=== PATIENT | female | born 1960 | race Caucasian/White ===

== ENCOUNTER 2020-02-26 03:21 | Inpatient (IN) ==
[2020-02-26] MEDS ORDERED: Ondansetron 4 MG/2 ML VIAL IVP PRN ×2 (04:43→10:16)
[2020-02-26] MEDS ORDERED: Naloxone 0.4 MG/ML INJ IVP PRN ×2 (04:43→10:16)
[2020-02-26] MEDS ORDERED: D5% in Water 1,000 ML IVC PRN ×2 (04:44→10:16)
[2020-02-26] MEDS ORDERED: Dextrose Gel 15 GM/37.5 ML TUBE PO PRN ×4 (04:44→10:16)
[2020-02-26] MEDS ORDERED: *HR* Dextrose 50 % in Water (Syg) 50 ML SYRINGE IVP PRN ×2 (04:44→10:16)
[2020-02-26] MEDS ORDERED: Heparin 25,000 UNIT/250 ML D5W 25,000 UNIT/250 ML IV.SOLN IVC SCH ×2 (04:45→05:15)
[2020-02-26] MEDS ORDERED: Aspirin 325 MG TABLET PO ONE (04:48)
[2020-02-26] MEDS ORDERED: *HR* Heparin 5,000 UNIT/ML VIAL IVP PRN ×4 (05:13→10:16)
[2020-02-26] MEDS ORDERED: Acetaminophen 325 MG TABLET PO PRN (05:30)
[2020-02-26] MEDS ORDERED: Insulin LISPRO 300 UNITS/3 ML VIAL SQ SCH (06:00)
[2020-02-26 06:12] LABS: Basophils % 0.3 %; Eosinophils % 0.1 %; Hematocrit 36.7 % (35.3-44.9); Hemoglobin 11.6 g/dL (11.5-15.4); Immature Granulocytes % 0.4 % (0-4); Lymphocytes # 1.8 K/mcL (0.6-4.6); Lymphocytes % 13.1 %; Mean Corpuscular HGB Conc 31.6 g/dL (31.6-35.5); Mean Corpuscular Hemoglobin 29.4 pg (28.0-33.3); Mean Corpuscular Volume 93.1 fL (83.0-100.0); Monocytes # 0.9 K/mcL (0.0-1.3); Monocytes % 6.3 %; Neutrophils # 10.8 K/mcL (1.6-8.9); Platelet Count 373 K/mcL (140-400); Red Blood Count 3.94 M/mcL (3.82-4.97); Segmented Neutrophils % 79.8 %; White Blood Count 13.6 K/mcL (4.3-11.1)
[2020-02-26 06:18] LABS: Heparin anti-factor XA UFH 0.85 IU/mL (0.30-0.70)
[2020-02-26 06:19] LABS: Prothrombin Time 11.6 Seconds (9.4-12.1)
[2020-02-26 06:45] LABS: Albumin 4.4 g/dL (3.5-5.7); Albumin/Globulin Ratio 1.4 (1.1-2.2); Bilirubin,Total 0.7 mg/dL (0.3-1.0); Calcium 10.9 mg/dL (8.6-10.3); Chol/HDL Ratio 6.8 (0-4.9); Globulin 3.2 g/dL (2.4-3.5); Magnesium 1.6 mg/dL (1.6-2.6); Phosphorous 5.2 mg/dL (2.7-4.5); Potassium 5.1 mEq/L (3.5-5.1); Total Protein 7.6 g/dL (6.4-8.9); Troponin I 0.89 ng/mL (< 0.04)
[2020-02-26 07:02] LABS: Bilirubin,Urine Negative (Negative); Blood,Urine Negative (Negative); Clarity,Urine Cloudy (Clear); Color,Urine Yellow (Yellow); Glucose,Urine (UA) 500 mg/dL (Normal); Ketones,Urine Negative (Negative); Leukocyte Esterase,Urine Large (Negative); Nitrite,Urine Negative (Negative); Protein,Urine Negative (Neg-Trace); Specific Gravity,Urine 1.014 (1.010-1.025); Urobilinogen,Urine Normal (Normal)
[2020-02-26] MEDS: Furosemide 40 MG/4 ML VIAL IVP ONE (07:03)
[2020-02-26 07:05] LABS: Bacteria,Urine Few per hpf (None-Few); Hyaline Casts,Urine None Seen per lpf (None-Few); RBC,Urine 0-3 per hpf (0-3); Squamous Epithelial Cell,Urine Many per lpf (None-Few); WBC,Urine 15-30 per hpf (0-3)
[2020-02-26] MEDS ORDERED: carvediloL 6.25 MG TABLET PO SCH (08:00)
[2020-02-26] MEDS ORDERED: Furosemide 40 MG/4 ML VIAL IVP ONE ×2 (09:00→19:30)
[2020-02-26] MEDS ORDERED: Vancomycin 1,250 MG/262.5 ML IV.SOLN IVPB SCH (10:00)
[2020-02-26] MEDS ORDERED: Piperacillin/Tazobactam 3.375 GM in 0.9 % Sodium Chloride Mini Bag 100 ML IVPB SCH (10:00)
[2020-02-26] MEDS: Insulin LISPRO 300 UNITS/3 ML VIAL SQ SCH ×2 (11:59→17:11)
[2020-02-26] MEDS: Heparin 25,000 UNIT/250 ML D5W 25,000 UNIT/250 ML IV.SOLN IVC SCH (12:20)
[2020-02-26 12:22] LABS: Calcium 10.3 mg/dL (8.6-10.3); Potassium 4.6 mEq/L (3.5-5.1)
[2020-02-26] MEDS: levoFLOXacin 750 MG/150 ML 750 MG/150 ML BAG IVPB SCH (14:40)
[2020-02-26] MEDS: Acetaminophen 325 MG TABLET PO PRN (18:40)
[2020-02-26] MEDS ORDERED: Perflutren Lipid Microsphere 1.3 ML in 0.9 % Sodium Chloride 8.7 ML IVP ONE (18:41)
[2020-02-26 19:10] LABS: Potassium,Urine 45.1 mEq/L; Sodium, Urine 93.4 mEq/L
[2020-02-27 01:48] LABS: Basophils % 0.3 %; Eosinophils # 0.1 K/mcL (0.0-0.6); Eosinophils % 0.5 %; Hematocrit 32.4 % (35.3-44.9); Hemoglobin 10.6 g/dL (11.5-15.4); Immature Granulocytes % 0.3 % (0-4); Lymphocytes # 3.8 K/mcL (0.6-4.6); Lymphocytes % 30.5 %; Mean Corpuscular HGB Conc 32.7 g/dL (31.6-35.5); Mean Corpuscular Hemoglobin 29.7 pg (28.0-33.3); Mean Corpuscular Volume 90.8 fL (83.0-100.0); Mean Platelet Volume 10.8 fL (9.4-12.4); Monocytes # 0.9 K/mcL (0.0-1.3); Monocytes % 7.6 %; Neutrophils # 7.5 K/mcL (1.6-8.9); Platelet Count 313 K/mcL (140-400); Red Blood Count 3.57 M/mcL (3.82-4.97); Segmented Neutrophils % 60.8 %; White Blood Count 12.3 K/mcL (4.3-11.1)
[2020-02-27 02:03] LABS: Calcium 9.2 mg/dL (8.6-10.3); Magnesium 1.1 mg/dL (1.6-2.6); Potassium 3.9 mEq/L (3.5-5.1)
[2020-02-27] MEDS: Insulin LISPRO 300 UNITS/3 ML VIAL SQ SCH ×5 (06:33→20:32)
[2020-02-27 10:11] LABS: Estimated Average Glucose 151 mg/dl
[2020-02-27] MEDS: Heparin 25,000 UNIT/250 ML D5W 25,000 UNIT/250 ML IV.SOLN IVC SCH (11:37)
[2020-02-27] MEDS: Aspirin 81 MG TAB.CHEW PO SCH (11:41)
[2020-02-27] MEDS: carvediloL 6.25 MG TABLET PO SCH ×2 (11:49→16:42)
[2020-02-27] MEDS ORDERED: Furosemide 40 MG/4 ML VIAL IVP ONE (13:10)
[2020-02-27] MEDS ORDERED: Aminoglycoside Consult 1 EACH MC ONE (15:34)
[2020-02-27] MEDS: Furosemide 40 MG/4 ML VIAL IVP ONE (16:41)
[2020-02-27] MEDS: Acetaminophen 325 MG TABLET PO PRN ×2 (16:51→22:40)
[2020-02-27] MEDS: Insulin DETEMIR 100 UNIT/ML X5UNITS SQ SCH (20:32)
[2020-02-28 02:41] LABS: Basophils % 0.3 %; Eosinophils # 0.1 K/mcL (0.0-0.6); Eosinophils % 1.2 %; Hematocrit 30.3 % (35.3-44.9); Hemoglobin 9.9 g/dL (11.5-15.4); Immature Granulocytes % 0.3 % (0-4); Lymphocytes # 4.6 K/mcL (0.6-4.6); Lymphocytes % 38.5 %; Mean Corpuscular HGB Conc 32.7 g/dL (31.6-35.5); Mean Corpuscular Hemoglobin 29.7 pg (28.0-33.3); Mean Platelet Volume 10.9 fL (9.4-12.4); Monocytes # 1.2 K/mcL (0.0-1.3); Monocytes % 9.9 %; Platelet Count 299 K/mcL (140-400); Red Blood Count 3.33 M/mcL (3.82-4.97); Red Cell Distribution Width 14.1 % (11.5-14.5); Segmented Neutrophils % 49.8 %
[2020-02-28 03:01] LABS: Calcium 8.8 mg/dL (8.6-10.3); Magnesium 2.6 mg/dL (1.6-2.6); Potassium 3.5 mEq/L (3.5-5.1)
[2020-02-28] MEDS: Aspirin 81 MG TAB.CHEW PO SCH (07:13)
[2020-02-28] MEDS: Acetaminophen 325 MG TABLET PO PRN ×3 (07:15→21:02)
[2020-02-28] MEDS: Insulin LISPRO 300 UNITS/3 ML VIAL SQ SCH ×4 (07:54→20:53)
[2020-02-28] MEDS ORDERED: carvediloL 6.25 MG TABLET PO SCH (08:00)
[2020-02-28] MEDS: levoFLOXacin 750 MG/150 ML 750 MG/150 ML BAG IVPB SCH (13:10)
[2020-02-28] MEDS: Heparin 25,000 UNIT/250 ML D5W 25,000 UNIT/250 ML IV.SOLN IVC SCH (14:05)
[2020-02-28] MEDS: carvediloL 6.25 MG TABLET PO SCH (16:58)
[2020-02-28] MEDS: Insulin DETEMIR 100 UNIT/ML X5UNITS SQ SCH (20:54)
[2020-02-29] MEDS: Acetaminophen 325 MG TABLET PO PRN ×2 (05:03→21:02)
[2020-02-29 07:24] LABS: Potassium 3.5 mEq/L (3.5-5.1)
[2020-02-29 07:25] LABS: Magnesium 2.3 mg/dL (1.6-2.6)
[2020-02-29] MEDS: Aspirin 81 MG TAB.CHEW PO SCH (07:53)
[2020-02-29] MEDS: carvediloL 6.25 MG TABLET PO SCH ×2 (07:53→16:37)
[2020-02-29] MEDS: Insulin LISPRO 300 UNITS/3 ML VIAL SQ SCH ×3 (08:10→16:37)
[2020-02-29] MEDS ORDERED: Insulin LISPRO 300 UNITS/3 ML VIAL SQ SCH (10:07)
[2020-02-29] MEDS ORDERED: Methyl Salicylate/Menthol 57 APPL/57 GM TUBE TP PRN (15:19)
[2020-02-29] MEDS: Heparin 25,000 UNIT/250 ML D5W 25,000 UNIT/250 ML IV.SOLN IVC SCH (17:57)
[2020-02-29] MEDS: Insulin DETEMIR 100 UNIT/ML X5UNITS SQ SCH (20:31)
[2020-02-29] MEDS: *HR* Acetylcysteine 20% 600 MG/3 ML ORAL SYRINGE PO SCH (20:55)
[2020-03-01 02:48] LABS: INR 1.1; Prothrombin Time 12.3 Seconds (9.4-12.1)
[2020-03-01 03:01] LABS: Albumin 3.9 g/dL (3.5-5.7); Albumin/Globulin Ratio 1.3 (1.1-2.2); Bilirubin,Total 0.4 mg/dL (0.3-1.0); Calcium 9.2 mg/dL (8.6-10.3); Globulin 2.9 g/dL (2.4-3.5); Potassium 3.5 mEq/L (3.5-5.1); Total Protein 6.8 g/dL (6.4-8.9)
[2020-03-01 07:47] VITALS: BP 124/68
[2020-03-01] MEDS: Insulin LISPRO 300 UNITS/3 ML VIAL SQ SCH (08:00)
[2020-03-01] MEDS: carvediloL 6.25 MG TABLET PO SCH (09:14)
[2020-03-01] MEDS: Aspirin 81 MG TAB.CHEW PO SCH (09:14)
[2020-03-01] MEDS: Acetaminophen 325 MG TABLET PO PRN (09:23)
[2020-03-01] MEDS: *HR* Acetylcysteine 20% 600 MG/3 ML ORAL SYRINGE PO SCH (11:15)
[2020-03-01] MEDS ORDERED: 0.9 % Sodium Chloride 2,000 ML ONE (11:41)
[2020-03-01] MEDS ORDERED: Heparin 1,000 UNITS/500 mL 500 ML ONE (11:41)
[2020-03-01] MEDS ORDERED: *HR* Heparin 10,000 UNIT/10 ML VIAL ONE (11:41)
[2020-03-01] MEDS ORDERED: ISOVUE-370 200 ML INFUS..BTL ONE (11:42)
[2020-03-01] MEDS ORDERED: Nitroglycerin 1,000 MCG/10 ML VIAL IV ONE (11:42)
[2020-03-01] MEDS ORDERED: levoFLOXacin 750 MG TABLET PO SCH (14:00)
== END 2020-03-01 15:35 | disposition home or self-care (01) | DRG 280 ==
LOC: 2NENU → SUATTDRO 04:37 → 3NENU 10:04 → SUATTDRO 02-27 14:22
PROVIDERS: ADMIT Internal Medicine; ATTEND Internal Medicine